=== PATIENT | female | born 1975 | race Caucasian/White ===

== ENCOUNTER → 2017-02-14 | Outpatient (CLI) | payer OTHER ==
[~2017-02-14] MED LIST: ACYCLOVIR PO; AMOXIL500 MG PO; ANTIVERT PO; ATENOLOL50 MG PO; ATIVAN PO; B12; BACTRIM DS TABL1 TA1 PO; BACTRIM DS TABL1 TAB PO; BENADRYL25 MG PO; CALCIUM + D 6001 TA1 PO; CELEXA PO; CIPRO PO; CYANOCOBAL1000 MCG/M SUBQ; DIFLUCAN PO; FIORICET 50-321 EACH PO; FLAGYL PO; FLEXERIL PO; FLEXERIL10 M1 PO; FLEXERIL10 MG PO; FLONASE16 GM; HYDROCHLOROTH12.5 MG PO; HYDROCODONE-APA1 T45 PO; HYDROCORTISONE30 G2 EXT; IBUPROFEN PO; KCL PO; KEFLEX500 MG PO; KENALOG IN ORABA5 GM TOP; KETOPROFEN PO; LEVOTHROID25 MCG PO; LIORESAL10 MG PO; LITHIUM PO; LOC PO; LORTAB 5/500 TA1 TA2 PO; LYRICA PO; MAGIC MOUTHWASH PO; MEDROL DOSEPAK4 MG DOB; MEDROL4 MG/DOSE- PO; NAPROXEN PO; NEURONTIN600 MG PO; NO MEDICATIONS; NORCO 7.5-3251 EACH PO; NYSTATIN15 GM OINT EXT; ORUDIS75 M1 DOB; OXYCODONE HCL10 MG PO; PERCOCET 7.5-31 EACH PO; PERCOCET PO; PERCOCET5/325 PO; PHENERGAN PO; PHENERGAN25 M1 PO; PRENATAL PLUS1 EAC1 PO; PYRIDIUM PO; PYRIDIUM100 MG PO; ULTRAM PO; VICODIN 5/1 TAB 5/50 PO; VITAMIN B12 SHOT; VOSOL HC EAR DR10 M1 OT; ZANAFLEX4 M1 PO; ZITHROMAX1 G/PKT PO; ZYRTEC-D T1 TAB.SR . PO; [UNRECOGNIZED DRUG - OTHER] PO
--- NOTE | ~2017-02-14 | CR91 ---
[facility] A Service of [facility] RADIOLOGY TEXT RESULTS PATIENT: IZABELA GRACE LOCATION: [facility] : 77 UNIT #: [id number] AGE: [address]: Giselle Zamarripa SEX: F ORDER DR: [id number] [place] [id number] O MR#: [id number] Acc #: [id number] NAME: IZABELA GRACE : 1975 SEX: F STUDY DATE/TIME: 02/14/2017 14:16 UNIT: [facility] ROOM: STUDY DESCRIPTION: CR Elbow 2 View Rt Attending Physician: Giselle Zamarripa A.P.R.N. Referring Physician: Giselle Zamarripa A.P.R.N. Ordering Physician: Giselle Zamarripa A.P.R.N. Primary Care Physician: Marlon Ibarra M.D. MEDICAL IMAGING REPORT This report is preliminary unless electronic signature is present. EXAM Right elbow 3 views INDICATIONS Right elbow pain for 2 months. COMPARISON STUDIES No comparisons. FINDINGS There is a small elbow joint effusion. There is no underlying fracture. There are no erosive changes. There is no dislocation. IMPRESSION There is a very small elbow joint effusion as indicated by elevation of the anterior fat pad. There is no evidence of fracture or other bony abnormality. Dictated by... Brian Christiansen M.D. THIS IS AN ELECTRONICALLY VERIFIED REPORT Brian Christiansen M.D. at 02/15/2017 9:33 AM ARS/pcl TD: 02/14/2017 18:18 JOB #: [id number] MEDICAL IMAGING REPORT [facility] A Service of [facility] RADIOLOGY TEXT RESULTS PATIENT: IZABELA GRACE LOCATION: [facility] : 77 UNIT #: [id number] AGE: [address]: Giselle Zamarripa SEX: F ORDER DR: Page 1 of 1
== END | disposition home or self-care (01) ==
LOC: SRAD 14:08
DX: M25.521 Pain in right elbow (principal); M25.421 Effusion, right elbow
CPT/HCPCS: 73070